=== PATIENT | female | born 1985 | race Hispanic/Latino ===

== ENCOUNTER 2017-11-26 06:30 | Inpatient (IN) | payer OTHER ==
[~2017-11-26] VITALS: Ht 154.9 cm; Wt 72.6 kg
[~2017-11-26 06:30] MED LIST: DOK100 MG PO; MOTRIN 800MG T800 MG PO; PERCOCET 325 MG1 TA2 PO; PRENATAL1 TA2 PO
[2017-11-26 06:37] VITALS: BP 118/60
--- NOTE | 2017-11-26 18:21 | Operative Report ---
Operative/Inv Procedure Report Surgery Date: 11/26/17 Name of Procedure: Elective repeat low flap transverse section Pre-Operative Diagnosis: History of previous delivery 1, desires repeat Post-Operative Diagnosis: same Estimated Blood Loss: 800 ml Surgeon/Merchandise Shopper: Layo GALVAN,Catia Teixeira M.D. Anesthesia: block Drains: Reich to gravity Condition: None stable Operative/Procedure Note Note: The patient was taken to the operating room where spinal anesthesia was administered without difficulty. She was then placed in the dorsal supine position with a leftward tilt. She was then prepped and draped in the usual sterile fashion. A Pfannenstiel skin incision was then made with the scalpel and carried through to the underlying layer of fascia. The fascia was incised in the midline and the incision extended laterally. Attention was then turned to the inferior and superior aspects of the fascial incision which were sharply dissected off of the rectus muscles. The rectus was in the midline. The peritoneum was identified and entered bluntly. The bladder blade was then inserted. The vesicouterine peritoneum was then identified and a bladder flap was created sharply with the Metzenbaum scissors. The bladder blade was then reinserted and the uterine incision was then made with the scalpel. The incision was extended bluntly and the amniotic membranes were then entered. Clear fluid was noted. The was then delivered via YOVANY position and the loose nuchal cord was easily reduced. The mouth and nose were bulb suctioned, the cord was clamped and cut, and the infant was handed to the waiting shellfish processing machine tender. Cord gases were sent. The three-vessel cord placenta was then delivered via fundal massage and gentle traction. The uterus was then cleared of all clots and debris. The bladder blade was then inserted and the uterine incision was then closed with 0 Vicryl in a running locking fashion. Excellent hemostasis was noted. The gutters were cleared of all clots and debris. The rectus muscles were then reapproximated with 0 Vicryl in an interrupted fashion. The fascia was then closed with 0 Vicryl in a running fashion. The subcutaneous tenia's tissue was then reapproximated with 2-0 Vicryl interrupted sutures. The skin was closed with 4-0 Vicryl in a subcuticular fashion. The patient tolerated the procedure well. All counts were reported to be correct 2. The patient was taken to the recovery room in stable condition. Findings: Live female infant, Apgars 9 and 9 Discharge Disposition: PACU
--- NOTE | 2017-11-27 09:06 | PN- Post Delivery/GYN ---
Subjective Subjective: pt feeling well. amb / ori po. bustillo just d/c'd. pain well controlled. no ortiz / cp / sob. Objective Last 24 Hrs of Vital Signs/I&O afeb, v/ss Physical Exam: nad abd soft nt nd ff inc c/d/i w/ steris - all just replaced because were stained w/ dark dried bld ale min lochia ext nt no edema Current Medications: Current Medications Sig/Chaya Start time Last Medication Dose Route Stop Time Status Admin Diphenhydramine HCl 25 MG Q6P PRN 11/26 0915 AC IV Docusate Sodium 100 MG AT BEDTIME PRN 11/26 0945 AC PO Ferrous Sulfate 325 MG BID 11/26 1000 AC PO Ibuprofen 800 MG Q6P PRN 11/26 0945 AC 11/27 PO 0818 Ketorolac 30 MG Q6P PRN 11/26 0915 AC 11/26 Tromethamine IV 11/27 0914 2022 Lactated Ringer's 1,000 ML .Q8H 11/26 0800 DC IV 11/27 0700 Magnesium Hydroxide 30 ML DAILY NEEDED PRN 11/26 0945 AC PO Metoclopramide HCl 10 MG Q6P PRN 11/26 0915 AC 11/26 IV 0923 Naloxone HCl 0.2 MG DAILY PRN 11/26 0915 AC IV Oxycodone/ 1 TAB Q4P PRN 11/26 0945 AC 11/27 Acetaminophen PO 0230 Oxycodone/ 2 TAB Q4P PRN 11/26 0945 AC Acetaminophen PO Oxytocin 20 UNITS Q8H 11/26 0945 DC 11/26 Lactated Ringer's 1,000 ML IV 11/26 1744 1011 Senna 187 MG AT BEDTIME NEED.. 11/26 0945 AC PO Last 24 Hrs of Labs/Pancho: Laboratory Tests 11/27/17 0810: CBC w Diff Pending, WBC Pending, RBC Pending, Hgb Pending, Hct Pending, MCV Pending, MCH Pending, MCHC Pending, RDW Pending, Plt Count Pending, MPV Pending Assessment/Plan Assessment/Plan pod 1 s/p rpt c/s, doing well -void check -f/u am cbc -enc oob / amb -routine pop care
[2017-11-27 09:37] LABS: ABSOLUTE BASOPHIL COUNT 0 /CUMM (0.0-0.2); ABSOLUTE EOSINOPHIL COUNT 0.1 /CUMM (0.0-0.7); ABSOLUTE GRANULOCYTE CT 8.5 /CUMM (1.4-6.5); ABSOLUTE LYMPH COUNT 1.3 /CUMM (1.2-3.4); ABSOLUTE MONOCYTE COUNT 0.9 /CUMM (0.10-0.60); BASOPHIL % 0.3 % (0.0-2.0); EOSINOPHIL % 1.1 % (0-5); GRANULOCYTE % 77.6 % (42.2-75.2); MEAN CORPUSCULAR HGB 32.6 PG (27.0-31.0); MEAN CORPUSCULAR HGB CONC 33.4 G/DL (33.0-37.0); MEAN CORPUSCULAR VOLUME 97.7 FL (81.0-99.0); MEAN PLATELET VOLUME 6.6 FL (7.4-10.4); PLATELET COUNT 309 /CUMM (130-400); RBC DISTRIBUTION WIDTH 14.2 % (11.5-14.5); RED BLOOD CELL CT 3.38 /CUMM (4.20-5.40); WHITE BLOOD CELL COUNT 10.9 /CUMM (4.8-10.8)
--- NOTE | 2017-11-28 11:05 | PN- OBGYN ---
Surgical Brief Attending Note Brief Attending Note: PT FEELING WELL. AMB / VOID / SNEHAL PO. +FLATUS. +BF. PAIN WELL CONTROLLED. AFEB, V/SS NAD ABD SOFT NT ND FF INC W/ STERIS C/D/I TIFFANY MIN LOCHIA EXT NT TR B/L LE ED HCT 33 A/P POD 2 S/P R C/S, DOING WELL DESIRES D/C HOME TODAY -D/C INSTRUCTIONS REVIEWED -RX MOTRIN AND PERC -ROUTINE POP CARE -F/U ON L&D WED, OFFICE IN 2 WKS
[2017-11-28] MEDS ORDERED: FERROUS SULFAT325 M2 PO (11:07)
[2017-11-28] MEDS ORDERED: PERCOCET 5-3251 EACH PO (11:07)
[2017-11-28] MEDS ORDERED: IBUPROFEN800 M1 PO (11:07)
== END 2017-11-29 14:25 | DRG 766 ==
LOC: GNO 06:30
PROVIDERS: Obstetrics & Gynecology
PROC: 10D00Z1 Extraction of Products of Conception, Low, Open Approach (ICD-10-PCS; principal; 2017-11-26)
DX: O34.211 Maternal care for low transverse scar from previous cesarean delivery (principal); N85.8 Other specified noninflammatory disorders of uterus; Z3A.39 39 weeks gestation of pregnancy; Z37.0 Single live birth; O69.81X0 Labor and delivery complicated by cord around neck, without compression, not applicable or unspecified
CPT/HCPCS: GNOS; 87086; J0690; J1885; J2765